=== PATIENT | male | born 1990 | race Hispanic/Latino ===

== ENCOUNTER 2023-02-08 17:17 | Emergency (ER) | payer SELFPAY ==
[~2023-02-08] VITALS: Ht 167.6 cm; Wt 94.3 kg
[2023-02-08] VITALS (7 sets, daily range): BP systolic 107–134; BP diastolic 52–81
[2023-02-08] MEDS ORDERED: KEFLEX500 MG PO (18:47)
== END 2023-02-08 19:03 | disposition home or self-care (01) | DRG 605 ==
LOC: ED 17:17
PROC: 0HQGXZZ Repair Left Hand Skin, External Approach (ICD-10-PCS; principal; 2023-02-08)
DX: S61.412A Laceration without foreign body of left hand, initial encounter (principal); W26.0XXA Contact with knife, initial encounter; Y92.009 Unspecified place in unspecified non-institutional (private) residence as the place of occurrence of the external cause